=== PATIENT | male | born 1985 | race African-American/Black ===

== ENCOUNTER 2017-06-20 13:58 | Emergency (ER) | payer SELFPAY ==
--- NOTE | 2017-06-20 14:07 | PDOC ---
History of Present Illness - General History Source: Patient Exam Limitations: No Limitations - History of Present Illness Initial Comments: 06/20/17 15:26 31 year old male, with a reported history of schizophrenia (noncompliant with seroquel) and drug use (reports crack and "flakka" use) who presents to the emergency room stating that he does not feel right and there is something wrong with his mind. The patient states that he is experiencing hallucinations and suicidal idealizations, but does not have a working plan. He notes that he sold his phone to buy drugs. He reports smoking crack and "flakka" - a synthetic drug popular down [facility]. The patient has a hospital band on his wrist and states that he was admitted to a [facility] for an unknown reason recently and states that he was let out of the hospital without any instructions. He states that he used to live with his mother in [place] after being released from skilled nursing, however, is unable to recall her contact information. The patient also has a list of homeless shelters in [facility]. Denies chest pain, SOB, cough. Denies fever, chills, nausea, vomiting. Denies any pain. <Maliha Chanel - Last Filed: 06/20/17 15:29> <Yamini Jason - Last Filed: 06/20/17 18:36> - General Chief Complaint: Psychiatric Stated Complaint: CONFUSION S/P USING K2 Time Seen by Provider: 06/20/17 14:07 Past History <Maliha Chanel - Last Filed: 06/20/17 15:29> <Yamini Jason - Last Filed: 06/20/17 18:36> - Past Medical History Allergies/Adverse Reactions: Allergies Allergy/AdvReac Type Severity Reaction Status Date / Time No Allergy Information Allergy Verified 06/20/17 14:41 Available Home Medications: Ambulatory Orders Unobtainable [Unobtainable] 06/20/17 Review of Systems - Review of Systems Able to Perform ROS?: Yes Comments:: 06/20/17 15:27 GENERAL/CONSTITUTIONAL: No fever or chills. No weakness. HEAD, EYES, EARS, NOSE AND THROAT: No change in vision. No ear pain or discharge. No sore throat. CARDIOVASCULAR: No chest pain or shortness of breath. RESPIRATORY: No cough, wheezing, or hemoptysis. MUSCULOSKELETAL: No joint or muscle swelling or pain. No neck or back pain. SKIN: No rash NEUROLOGIC: No headache, vertigo, loss of consciousness, or change in strength/ sensation. PSYCH: +visual and auditory hallucinations, suicidal ideation with a working plan. <Maliha Chanel - Last Filed: 06/20/17 15:29> *Physical Exam - Vital Signs Last Vital Signs Temp Pulse Resp BP Pulse Ox 98.2 F 102 H 16 128/81 99 06/20/17 14:00 06/20/17 14:00 06/20/17 14:00 06/20/17 14:00 06/20/17 14:00 - Physical Exam Comments: 06/20/17 15:28 GENERAL: Awake, alert, and fully oriented, in no acute distress HEAD: No signs of trauma EYES: PERRLA, EOMI, sclera anicteric, conjunctiva clear ENT: Auricles normal inspection, hearing grossly normal, nares patent, oropharynx clear without exudates. Moist mucosa NECK: Normal ROM, supple, no lymphadenopathy, JVD, or masses LUNGS: Breath sounds equal, clear to auscultation bilaterally. No wheezes, and no crackles HEART: Regular rate and rhythm, normal S1 and S2, no murmurs, rubs or gallops ABDOMEN: Soft, nontender, normoactive bowel sounds. No guarding, no rebound. No masses EXTREMITIES: Normal range of motion, no edema. No clubbing or cyanosis. No cords, erythema, or tenderness NEUROLOGICAL: Cranial nerves II through XII grossly intact. Normal speech, normal gait PSYCH: Agitated. Disorganized with a flight of ideas. Admitted to homicidal and suicidal ideation without a plan. Also admitted to auditory hallucinations SKIN:+skin changes on the feet bilaterally consistent with trench foot. Warm, Dry, normal turgor. No rashes <Maliha Chanel - Last Filed: 06/20/17 15:29> ED Treatment Course - LABORATORY CBC & Chemistry Diagram: 06/20/17 14:45 06/20/17 14:45 - ADDITIONAL ORDERS Additional order review: Laboratory Results 06/20/17 14:45 Sodium 138 Potassium 4.4 Chloride 103 Carbon Dioxide 27 Anion Gap 8 BUN 19 H Creatinine 1.0 Creat Clearance w eGFR > 60 Random Glucose 107 H Calcium 9.4 AST 26 ALT 21 Alkaline Phosphatase 58 Total Protein 7.4 Albumin 4.4 06/20/17 14:45 RBC 5.49 MCV 89.1 MCHC 33.7 RDW 12.1 MPV 9.7 Neutrophils % 62.8 Lymphocytes % 18.3 Monocytes % 17.6 H Eosinophils % 0.7 Basophils % 0.6 - Medications Given in the ED: ED Medications Discontinued Medications Generic Name Dose Route Start Last Admin Trade Name Ruddy PRN Reason Stop Dose Admin Haloperidol 5 mg 06/20/17 14:24 06/20/17 14:41 Haldol Injection (Fast Acting) - IVPUSH 06/20/17 14:25 5 mg ONCE ONE Administration Lorazepam 2 mg 06/20/17 14:24 06/20/17 14:41 Ativan Injection - IVPUSH 06/20/17 14:25 2 mg ONCE ONE Administration <Maliha Chanel - Last Filed: 06/20/17 15:29> - LABORATORY CBC & Chemistry Diagram: 06/20/17 14:45 06/20/17 14:45 <Yamini Jason - Last Filed: 06/20/17 18:36> Medical Decision Making - Medical Decision Making 06/20/17 16:16 Pt presents to the ED complaining of "feeling not right mentally". PAtient is extremely disorganized and is unable to give basic details about himself, but admits to a history of schizophrenia, non compliance with meds and drug use. unclear where his psych follow up is--patient reports that he walked here from [place]. Reports active SI and HI, although does not report plan. Patient became increasingly agitated and paranoid during my exam. Sedated with haldol and ativan. Labs and head ct performed to rule out organic disease. Labs are negative. Patient may require psychiatric admission--will consult psychiatry. 06/20/17 18:33 patient has been seen and cleared for discharge by psychiatric orderly. Now denies SI or HI and is more organized Will discharge home. <Yamini Jason - Last Filed: 06/20/17 18:36> *DC/Admit/Observation/Transfer - Attestations Scribe Attestion: 06/20/17 15:29 Documentation prepared by MEGHAN Estrada, acting as medical billing coder for Yamini Jason MD. <Maliha Chanel - Last Filed: 06/20/17 15:29> <Yamini Jason - Last Filed: 06/20/17 18:36> Diagnosis at time of Disposition: Schizophrenia Qualifiers: Schizophrenia type: unspecified Qualified Code(s): F20.9 - Schizophrenia, unspecified - Discharge Dispostion Disposition: HOME Condition at time of disposition: Good - Patient Instructions Printed Discharge Instructions: DI for Schizophrenia Additional Instructions: make sure that you follow up with [facility] or [facility] within the next 24 hours. REturn to the ED for thoughts of hurting yourself or others, confusion, hearing voices or seeing things, or other new or changing symptoms.
[2017-06-20] MEDS ORDERED: HALOPERIDOL LACTATE 5 MG/ML IVPUSH ONE (14:24)
[2017-06-20] MEDS ORDERED: LORazepam 2 MG/ML SDV VIAL ONE (14:34)
[2017-06-20 14:57] LABS: BASOPHIL 0.6 % (0-2.0); EOSINOPHIL 0.7 % (0-4.5); MCH 30.1 pg (25.7-33.7); MCHC 33.7 g/dl (32.0-35.9); MEAN CELL VOLUME 89.1 fl (80-96); MEAN PLT VOLUME 9.7 fl (7.5-11.1); NEUTROPHILS 62.8 % (42.8-82.8); PLATELET COUNT 208 K/MM3 (134-434); RDW 12.1 % (11.9-15.9); WHITE BLOOD COUNT 9.9 K/mm3 (4.0-10.8)
[2017-06-20 14:59] VITALS: TEMP 98.2; BMI 24.0
[2017-06-20 15:12] LABS: ALBUMIN 4.4 g/dl (3.5-5.0); ALK PHOS 58 U/L (32-92); ANION GAP 8 (8-16); CALCIUM 9.4 mg/dl (8.4-10.2); CO2 27 mmol/L (22-28); GLUCOSE,RANDOM 107 mg/dl (74-106); SGOT/AST 26 U/L (10-42); SGPT/ALT 21 U/L (10-40); TOT PROT 7.4 g/dl (6.4-8.3)
[2017-06-20 16:18] LABS: BILIRUBIN,TOTAL 0.5 mg/dl (0.2-1.0)
[2017-06-20 17:39] LABS: PH,URINE 6.5 (4.5-8); URINE APPEARANCE Clear; URINE BILIRUBIN Negative (NEGATIVE); URINE BLOOD Negative (NEGATIVE); URINE COLOR YELLOW; URINE GLUCOSE (UA) Negative (NEGATIVE); URINE KETONE Trace (NEGATIVE); URINE LEUK ESTERASE Negative (NEGATIVE); URINE NITRITE Negative (NEGATIVE); URINE PROTEIN Negative (NEGATIVE)
[2017-06-20 17:54] VITALS: BP 112/59; PULSE 85
--- NOTE | 2017-06-20 18:23 | CON.PSY ---
Psychiatry Consult Chief Complaint: 31 year old male with a history of drug use and underlying mental health issues History of Present Problem: Asked to see this patient to assess for inpatient psychiatric admission. Patient came to ER with this am after what he states as 'taking K2' He admits to a history of underlying paranoid schizophrenia or schizoaffective disorder? Meds used in the past are debate and seroquel. He is non compliant psychiatric meds Patient reports that he is initially in the [place] from [place] and recently was at a drug rehab center, [facility], in the [place]. He left [facility] and is currently homeless. Symptoms: reports: Depressed Mood, Impaired Concentration, Decreased Motivation - Allergies Allergies: Allergies Allergy/AdvReac Type Severity Reaction Status Date / Time No Allergy Information Allergy Verified 06/20/17 14:41 Available - Current Living Status Usual Living Arrangement: Other (currently homeless) - Affect Affect: Constrictive Appropriateness: Appropriate to Content - Mood Mood: Other (calm) - Speech/Language Expressive: Coherent Receptive: Age Appropriate Comprehension of Spoken Words - Psychomotor Activity Psychomotor Activity: Normal - Thought Process Thought Process: Circumstantial - Thought Content Hallucinations: Absent Delusions: Absent - Self Perception Self Perception: No Impairment - Cognition Attention: Alert Orientation: Time, Person, Place Memory, Immediate Recall: Impaired - Concentration Serial Sevens Intact: No Simple Calculations Intact: No - Abstraction Proverb Interpretation: Impaired Judgement: Moderately Impaired - Impulse Control Impulse Control: Moderately Impaired - Suicidal Ideation Suicidal Ideation: No - Homicidal Ideation Homicidal Ideation: No Assessment/Plan Rule out schizophrenia Substance abuse active Psychosocial issues- housing, chronic mental illness Patient is not suicidal/homicidal at this time He is not a candidate for in patient psychiatric hospitalization at this time
[2017-06-20 18:31] LABS: THYROID STIMULATING HORMONE 0.61 uIU/ml (0.358-3.74)
[2017-06-20 19:16] LABS: URINE MARIJUANA THC POSITIVE ng/ml (CUTOFF=50)
--- NOTE | 2017-06-21 15:54 | EKG ---
Test Reason : Blood Pressure : / mmHG Vent. Rate : 089 BPM Atrial Rate : 089 BPM P-R Int : 156 ms QRS Dur : 080 ms QT Int : 348 ms P-R-T Axes : 030 034 011 degrees QTc Int : 423 ms NORMAL SINUS RHYTHM NONSPECIFIC T WAVE ABNORMALITY ABNORMAL ECG NO PREVIOUS ECGS AVAILABLE REPEAT EKG IF CLINICALLY INDICATED Confirmed by FREDRICK KHAN MD ([id number]) on 06/21/2017 3:54:07 PM Referred By: MD CARRILLO Confirmed By:FREDRICK KHAN MD
== END 2017-06-20 18:45 | disposition home or self-care (01) ==
LOC: FER 13:58
PROC: 3E033NZ Introduction of Analgesics, Hypnotics, Sedatives into Peripheral Vein, Percutaneous Approach (ICD-10-PCS; principal; 2017-06-20)
PROC: 3E033GC Introduction of Other Therapeutic Substance into Peripheral Vein, Percutaneous Approach (ICD-10-PCS; 2017-06-20)
DX: F20.9 Schizophrenia, unspecified (principal)
CPT/HCPCS: 36415; 70450-TC; 80053; 80307; 81003; 84443; 85025; 93005; 99284-25